=== PATIENT | male | born 1935 | race Caucasian/White ===

== ENCOUNTER 2017-07-14 05:21 | Emergency (ER) | payer OTHER ==
[~2017-07-14] VITALS: Ht 188 cm; Wt 83.0 kg
[~2017-07-14 05:21] MED LIST: ASPIR 8181 MG PO; ASPIRIN ADULT L81 M4 PO; FINASTERIDE5 M1 PO; NOR5 PO; PLA75 PO; SIMVASTATIN10 M1 PO; ZESTRIL20 MG PO
[2017-07-14 07:15] VITALS: BP 98/66
== END 2017-07-14 07:15 | disposition home or self-care (01) ==
LOC: ED 05:21
DX: R33.9 Retention of urine, unspecified (principal); I10 Essential (primary) hypertension
CPT/HCPCS: 90715

== ENCOUNTER 2017-08-07 13:05 | Inpatient (IN) | payer OTHER ==
[~2017-08-07] VITALS: Ht 188 cm; Wt 81.8 kg
[2017-08-07 14:22] LABS: CALCIUM 8.8 mg/dL (8.5-10.1); CARBON DIOXIDE 29.3 mmol/L (21-32); CHLORIDE SERUM 104 mmol/L (98-107); CREATININE SERUM 1.2 mg/dL (0.7-1.3); GLUCOSE SERUM 68 mg/dL (74-106); POTASSIUM SERUM 3.7 mmol/L (3.5-5.1); SODIUM SERUM 139 mmol/L (136-145)
[2017-08-07 14:26] LABS: ALKALINE PHOSPHATASE 131 U/L (46-116); ALT/SGPT 17 U/L (16-63); AST/SGOT 10 U/L (15-37); BASOPHIL % 0.2 % (0-2); BILIRUBIN TOTAL 0.6 mg/dL (0.20-1.00); PLATELET COUNT 292 x10^3mcL (130-400); RED CELL DISTRIBUTION WIDTH 13.7 % (11.5-14.5); TOTAL PROTEIN, SERUM 6.8 g/dL (6.4-8.2)
[2017-08-07 17:13] LABS: MAGNESIUM 2.3 mg/dL (1.8-2.4); PHOSPHOROUS 2.9 mg/dL (2.5-4.9)
[2017-08-07 17:18] LABS: CHOLESTEROL/HDL RATIO 4.8
[2017-08-07 17:21] LABS: FREE T4 0.77 ng/dL (0.76-1.46); FREE THYROXINE INDEX 1.8 ug/dL (1.4-4.5); T4(THYROXINE) 5.4 ug/dL (4.7-13.3)
[2017-08-07 17:23] LABS: T3 TOTAL 0.92 ng/mL
[2017-08-07 18:19] VITALS: BP 185/99
[2017-08-07 18:21] VITALS: Ht 188 cm; Wt 81.8 kg
[2017-08-07 21:34] LABS: microscopic required? NO
[2017-08-07 21:41] VITALS: BP 169/83
[2017-08-07 21:44] LABS: UA SPECIFIC GRAVITY <=1.005 (1.005-1.035); urine erythrocyte NEGATIVE (NEGATIVE)
[2017-08-07 21:59] LABS: AMPHETAMINE QUAL UR NONE DETECTED (NEG <=1000)
== END 2017-08-07 23:25 | disposition left against medical advice (07) | DRG 542 ==
LOC: ED 13:05 → DU 15:55
PROVIDERS: Emergency Medicine; ADMIT Family Medicine
DX: C79.51 Secondary malignant neoplasm of bone (principal); G93.41 Metabolic encephalopathy; E44.1 Mild protein-calorie malnutrition; C61 Malignant neoplasm of prostate; M94.0 Chondrocostal junction syndrome [Tietze]; I71.2 Thoracic aortic aneurysm, without rupture; E78.5 Hyperlipidemia, unspecified; I16.0 Hypertensive urgency; K57.30 Diverticulosis of large intestine without perforation or abscess without bleeding; Z68.23 Body mass index [BMI] 23.0-23.9, adult; Z86.73 Personal history of transient ischemic attack (TIA), and cerebral infarction without residual deficits
CPT/HCPCS: 83880; 84439; J1885; J3010; J7030; Q0092; Q9967

== ENCOUNTER 2017-11-30 17:40 | Emergency (ER) | payer OTHER ==
[~2017-11-30] VITALS: Ht 188 cm; Wt 76.2 kg
[2017-11-30 17:54] VITALS: Ht 188 cm; Wt 76.2 kg
[2017-11-30 19:02] LABS: BASOPHIL % 0.3 % (0-2); PLATELET COUNT 295 x10^3mcL (130-400); RED CELL DISTRIBUTION WIDTH 15.5 % (11.5-14.5)
[2017-11-30 19:09] LABS: UA SPECIFIC GRAVITY 1.015 (1.005-1.035); microscopic required? YES; urine erythrocyte 2+ (NEGATIVE)
[2017-11-30 19:15] LABS: CALCIUM 8.7 mg/dL (8.5-10.1); CHLORIDE SERUM 98 mmol/L (98-107); CREATININE SERUM 1.3 mg/dL (0.7-1.3); GLUCOSE SERUM 108 mg/dL (74-106); POTASSIUM SERUM 3.8 mmol/L (3.5-5.1); SODIUM SERUM 134 mmol/L (136-145)
[2017-11-30 19:28] LABS: ALKALINE PHOSPHATASE 371 U/L (46-116); ALT/SGPT 84 U/L (16-63); AMYLASE 62 U/L (25-115); AST/SGOT 50 U/L (15-37); BILIRUBIN TOTAL 0.6 mg/dL (0.20-1.00); LIPASE 307 IU/L (73-393); T4(THYROXINE) 6.1 ug/dL (4.7-13.3); TOTAL PROTEIN, SERUM 7.1 g/dL (6.4-8.2)
[2017-11-30] MEDS ORDERED: CODEINE PHOSPHA1 TAB PO (22:22)
[2017-11-30] MEDS ORDERED: BACTRIM1 TAB PO (22:23)
[2017-11-30 22:53] LABS: T3 TOTAL 0.73 ng/mL
[2017-11-30 22:59] VITALS: BP 132/88
[2017-11-30 22:59] LABS: CHOLESTEROL/HDL RATIO 5.4; MAGNESIUM 2.3 mg/dL (1.8-2.4); PHOSPHOROUS 2.1 mg/dL (2.5-4.9)
[2017-11-30 23:16] LABS: FREE T4 0.95 ng/dL (0.76-1.46); FREE THYROXINE INDEX 2.1 ug/dL (1.4-4.5); T4(THYROXINE) 6.2 ug/dL (4.7-13.3)
== END 2017-11-30 22:59 | disposition home or self-care (01) ==
LOC: ED 17:40 → DU 22:13
PROVIDERS: Emergency Medicine; Family Medicine
DX: R33.9 Retention of urine, unspecified (principal); E46 Unspecified protein-calorie malnutrition; I10 Essential (primary) hypertension
CPT/HCPCS: 82962; 83880; 84439; J1630; J1956; J2060; J3010; J7030; J7040; Q0092

== ENCOUNTER 2017-12-14 11:36 | Inpatient (IN) | payer OTHER ==
[~2017-12-14] VITALS: Ht 188 cm; Wt 74.4 kg
[~2017-12-14 11:36] MED LIST changes: +BACTRIM1 TAB PO; +CODEINE PHOSPHA1 TAB PO
[2017-12-14 11:44] VITALS: Ht 188 cm; Wt 74.4 kg
[2017-12-14 12:19] LABS: BASOPHIL % 0.4 % (0-2); PLATELET COUNT 240 x10^3mcL (130-400); RED CELL DISTRIBUTION WIDTH 15.6 % (11.5-14.5)
[2017-12-14 12:38] LABS: CALCIUM 8.1 mg/dL (8.5-10.1); CARBON DIOXIDE 27.5 mmol/L (21-32); CHLORIDE SERUM 106 mmol/L (98-107); CREATININE SERUM 1.2 mg/dL (0.7-1.3); GLUCOSE SERUM 100 mg/dL (74-106); POTASSIUM SERUM 3.4 mmol/L (3.5-5.1); SODIUM SERUM 140 mmol/L (136-145)
[2017-12-14 12:43] LABS: ALKALINE PHOSPHATASE 693 U/L (46-116); ALT/SGPT 25 U/L (16-63); AST/SGOT 14 U/L (15-37); BILIRUBIN TOTAL 0.4 mg/dL (0.20-1.00); TOTAL PROTEIN, SERUM 6.6 g/dL (6.4-8.2)
[2017-12-14 12:45] LABS: ALBUMIN 2.9 g/dL (3.4-5.0)
[2017-12-14 14:49] LABS: T3 TOTAL 0.92 ng/mL
[2017-12-14 14:51] LABS: CHOLESTEROL/HDL RATIO 4.5; MAGNESIUM 2.3 mg/dL (1.8-2.4); PHOSPHOROUS 2.8 mg/dL (2.5-4.9)
[2017-12-14 14:59] LABS: FREE T4 0.73 ng/dL (0.76-1.46)
[2017-12-14 15:02] LABS: FREE THYROXINE INDEX 1.4 ug/dL (1.4-4.5); T4(THYROXINE) 4.1 ug/dL (4.7-13.3)
[2017-12-14 16:25] LABS: IRON 63 ug/dL (65-170)
[2017-12-14 16:26] LABS: TOTAL IRON BINDING CAPACITY 202 ug/dL (250-450)
[2017-12-14 16:36] LABS: RED BLOOD CELLS 4.28 M/mm3 (4.52-5.90)
[2017-12-14 16:41] VITALS: BP 93/53
== END 2017-12-14 17:45 | disposition left against medical advice (07) | DRG 74 ==
LOC: ED 11:36 → DU 13:27
PROVIDERS: Emergency Medicine; Family Medicine Sports Medicine
DX: G90.9 Disorder of the autonomic nervous system, unspecified (principal); E44.0 Moderate protein-calorie malnutrition; C79.51 Secondary malignant neoplasm of bone; C61 Malignant neoplasm of prostate; E87.6 Hypokalemia; I10 Essential (primary) hypertension; R73.03 Prediabetes; D64.9 Anemia, unspecified; E78.5 Hyperlipidemia, unspecified; Z68.20 Body mass index [BMI] 20.0-20.9, adult; Z86.73 Personal history of transient ischemic attack (TIA), and cerebral infarction without residual deficits; Z87.891 Personal history of nicotine dependence; Z66 Do not resuscitate
CPT/HCPCS: 83880; 84439; J0696; J7030; J7040; Q0092